=== PATIENT | female | born 1995 | race Caucasian/White ===

== ENCOUNTER 2017-01-24 21:49 | Emergency (ER) | payer OTHER ==
[~2017-01-24] VITALS: Ht 167.6 cm; Wt 97.7 kg
[~2017-01-24 21:49] MED LIST: AMPH15TA PO; AMPH20TA5 PO; LAMO200T2 PO; LEVO112T23 PO; LEVO50TA5 PO; ROB500 PO
[2017-01-24 22:00] VITALS: BP 128/82; RESP 16; O2SAT 98
--- NOTE | 2017-01-24 22:14 | ED.REPORT ---
HPI-Ear Pain/Problem/FB Date of Service January 24, 2017 ED Provider: The patient is a 21 year old female with history of asthma, who presents to the emergency department complaining of left ear pain that began earlier this morning. Her pain has worsened throughout the day. She also complains of a sore throat, hoarse voice, muffled hearing on the left. She has taken ibuprofen with minimal relief. She denies fever, chills, ear discharge, cough, nausea, vomiting or diarrhea. Nursing Notes Stated Complaint: LEFT EAR PAIN Chief Complaint: ENT & Mouth Nursing Notes Reviewed: Yes Allergies: Coded Allergies: No Known Allergies (Verified Allergy, Unknown, 02/03/15) Scheduled Amoxicillin (Amoxicillin) 500 Mg Tablet 1,000 MG PO TID Amphet Asp/Amphet/D-Amphet (Adderall) 20 Mg Tablet 20 MG PO DAILY Dextroamphetamine/Amphetamine (Adderall) 15 Mg Tablet 15 MG PO DAILY Lamotrigine (Lamotrigine) 200 Mg Tablet 200 MG PO BID Levothyroxine (Levoxyl) 112 Mcg Tablet 112 MCG PO DAILY Levothyroxine-Expunged Drug, Do Not Renew! (Synthroid-Expunged Drug, Do Not Renew!) 50 Mcg Tablet 0.05 MG PO DAILYAC 0.05 MG = 50 MCG Miscellaneous Medications Methocarbamol (Methocarbamol) 500 Mg Tablet 0 PO General Time Seen by MD: 22:14 Chief Complaint Ear problem left, Pain Hx Obtained From: Patient Arrived By: Walk-in Onset Occurred: 13 - 16 hours ago Symptom Duration: Since onset Quality: Painful Severity: Current: Moderate Severity: Maximum: Moderate Recent Healthcare: No recent doctor visit, No recent hospitalization Similar Sx Previous: No Past Medical History Past Medical History Per old records patient has a history of bipolar disorder Reports: Asthma Past Surgical History denies Family History Noncontributory Smoking History Former Smoker Social History Alcohol Use: 1-3 per week Drug Use: Denies drug use Other Social History: Good social support, , Lives with parents, Local resident Ambulatory Status Independent Review of Systems Constitutional: Denies: Chills, Fever Ears / Nose / Throat: Reports: Earache left, Hearing loss left, Sore throat, Voice change (hoarse), Denies: Ear drainage left Complete sys rev & neg: except as marked. Additional Review of Systems Respiratory: Denies: Non-productive cough GI: Denies: Diarrhea, Nausea, Vomiting Physical Exam Initial Vital Signs Vital Signs (First) Date Time Temp Pulse Resp B/P Pulse Ox O2 Delivery O2 Flow Rate FiO2 01/24/17 22:00 36.1 83 16 128/82 98 Room Air Initial VS: Reviewed, Vital signs normal Head / Eyes: Atraumatic, Normocephalic, PERRL Neck: Supple, Non-tender, Full range of motion Respiratory: Breath sounds normal, Clear to auscultation, No respiratory distress Cardiovascular: Regular rate & rhythm, Heart sounds normal, Intact distal pulses Abdomen / GI: Soft, Non-tender, No guarding, No rebound, No distention Lymphatic: No lymphadenopathy Extremities: Vascular intact, Neuro intact, No swelling, No tenderness Skin: Warm, Dry, No cyanosis Neurologic: Alert, Oriented, Nonfocal Psychiatric: Mood/affect normal, Behavior normal, Normal thought content General/Constitutional: Awake, Alert ENT: Airway patent, Mucous membranes moist, Pharynx NL Right Ear / Mastoid: Negative: Tympanic memb perforated, Tympanic membrane red Left Ear / Mastoid: Positive: Fluid behind TM clear, Tympanic membrane bulging Re-Eval/Medical Decision Med Decision/Clinical Course The patient has purulent otitis media after an upper respiratory infection. Given its purulent she will be started on oral antibiotics. Source of Hx: Old records Re-Evaluation/Progress : Time of Eval: 22:20 Re-Evaluation/Progress Note: Discussed plan for discharge. All questions were addressed. Counseled Regarding: Diagnosis, Need for follow-up, When/why to return to ED Discharge & Departure Primary Impression: Otitis media Otitis media type: unspecified Laterality: left Chronicity: unspecified Qualified Code: H66.92 - Otitis media, unspecified, left ear Disposition: Home Discharge Condition All VS Reviewed: Yes Condition: Stable Patient Instructions: Otitis Media (ED) Additional Instructions: Thank you for entrusting us with your care today. You do have evidence of an ear infection on the left side. Take the oral antibiotics as prescribed. Continue to use ibuprofen as needed for your pain. Seek care for any new or concerning symptoms. Referrals: Sheila Herrera MD (PCP) Scribe Attestation Portions of this note were transcribed by Haritha Grossman. IDr. Shultz personally performed the history, physical exam and medical decision-making; I reviewed and confirmed the accuracy of the information in the transcribed note. Signed by: Celeste Stephens, 01/24/2017 at 2235. copies to: Sheila Herrera MD, Jena M MD January 24, 2017 22:14 Haritha Grossman January 24, 2017 22:21
[2017-01-24] MEDS ORDERED: HYDROcodone-APAP 5-325 mg Tablet PO ONE (22:20)
[2017-01-24] MEDS ORDERED: AMOX500T2 PO (22:25)
== END 2017-01-24 22:30 | disposition home or self-care (01) ==
LOC: SED 21:49
DX: H66.92 Otitis media, unspecified, left ear (principal); Z87.891 Personal history of nicotine dependence; Z79.899 Other long term (current) drug therapy